=== PATIENT | male | born 1960 | race Caucasian/White ===

== ENCOUNTER 2016-12-19 07:28 | Outpatient (CLI) | payer MEDICAID ==
--- NOTE | 2016-12-19 08:57 | Ultrasound Report ---
SCROTAL DUPLEX: 12/19/2016 CLINICAL INDICATION: Pain. TECHNIQUE: Real-time sonographic vascular imaging was performed by the jumpbasting armhole baster through the scrotum utilizing both color-flow and Doppler spectral analysis. Multiple hotel services sales representative static images were saved for review. FINDINGS: The right testicle measures 5.1 x 3.5 x 2.7 cm, and the left testicle measures 5.2 x 3.1 x 3.0 cm. Both testicles demonstrate normal blood flow. No mass is identified. The right testicle does demonstrate microlithiasis. The right epididymis demonstrates a small cyst. The left epididymis is unremarkable. Trace hydrocele is present on the right. No hernia is identified. IMPRESSION: RIGHT TESTICULAR MICROLITHIASIS, WITHOUT EVIDENCE OF MASS LESION. FOLLOWUP SCROTAL DUPLEX IN ONE YEAR IS RECOMMENDED. JOB #: [id number] EXT JOB #: [id number] MTDD
--- NOTE | 2016-12-19 08:59 | Ultrasound Report ---
LIMITED ABDOMINAL ULTRASOUND: 12/19/2016 CLINICAL INDICATION: Left lower quadrant abdominal pain. TECHNIQUE: Real-time scanning was performed with patient financial representative static images obtained. FINDINGS: As requested, ultrasound of the left lower quadrant was performed. No ascites is seen. No abnormal mass is identified. IMPRESSION: NORMAL ULTRASOUND OF THE LEFT LOWER QUADRANT. JOB #: [id number] EXT JOB #:[id number]
== END 2016-12-19 07:29 | disposition home or self-care (01) ==
LOC: DI 07:28
PROVIDERS: ATTEND Nurse Practitioner Gerontology
DX: N50.89 Other specified disorders of the male genital organs (principal); R10.30 Lower abdominal pain, unspecified
CPT/HCPCS: 76705; 76870

== ENCOUNTER 2017-11-22 10:11 | Emergency (ER) | payer MEDICAID ==
[2017-11-22 12:09] VITALS: BP 122/81
--- NOTE | 2017-11-22 12:19 | ED Physician Documentation ---
History of Present Illness - Stated complaint Stated Complaint: EAR PX - Chief complaint Chief Complaint: Heent - Additonal information Additional information: hx from pt recent cough and cold now ears are still congested smoker but is cutting down pain is mild Review of Systems Constitutional: denies: Fever Ears: reports: Ear pain Nose: reports: Congestion Respiratory: reports: Cough (improving) Immunocompromised: denies: Immunocompromised PD PAST MEDICAL HISTORY - Past Medical History Past Medical History: Yes Respiratory: Asthma - Past Surgical History Past Surgical History: No - Present Medications Home Medications: Ambulatory Orders Medication Instructions Recorded Confirmed Oxymetazoline HCl [Afrin] 2 spray NS BID PRN #1 bottle 11/22/17 - Allergies Allergies/Adverse Reactions: Allergies Allergy/AdvReac Type Severity Reaction Status Date / Time Penicillins Allergy Anaphylaxis Verified 11/22/17 10:25 - Social History Does the pt smoke?: Yes Smoking Status: Current every day smoker Does the pt drink ETOH?: No Does the pt have substance abuse?: Yes Substance Use and Type: Marijuana - Immunizations Immunizations are current?: Yes PD ED PE NORMAL - Vitals Vital signs reviewed: Yes - General General: Alert and oriented X 3 - HEENT HEENT: PERRL. No: Ears normal (dull and retracted yasir no erythema) - Cardiac Cardiac: RRR - Respiratory Respiratory: Other (occ scattered wheeze c/w smoker but good air movement and no ronchi) Results - Vitals Vitals: Vital Signs - 24 hr 11/22/17 11/22/17 10:22 12:08 Temperature 37 C 36.7 C Heart Rate 64 56 L Respiratory 16 18 Rate Blood Pressure 121/76 122/81 H O2 Saturation 96 96 Oxygen O2 Source Room air Departure - Departure Disposition: 01 Home, Self Care Clinical Impression: Serous otitis media Qualifiers: Chronicity: acute Laterality: bilateral Recurrence: not specified as recurrent Qualified Code(s): H65.03 - Acute serous otitis media, bilateral Condition: Good Instructions: ED Otitis Media Serous Adult Prescriptions: Oxymetazoline HCl [Afrin] 2 spray NS BID PRN #1 bottle PRN Reason: nasal sinus ear congestion Comments: Please stop smoking
== END 2017-11-22 12:35 | disposition home or self-care (01) ==
LOC: ED 10:11
DX: H65.03 Acute serous otitis media, bilateral (principal); J45.909 Unspecified asthma, uncomplicated; F17.200 Nicotine dependence, unspecified, uncomplicated
CPT/HCPCS: 99283

== ENCOUNTER 2018-06-09 12:44 | Outpatient (CLI) | payer MEDICAID ==
--- NOTE | 2018-06-10 10:07 | Ultrasound Report ---
Reason: TESTICULAR DYSFUNCTION, FOLLOW-UP SCROTUM FOR MICROLITHIASIS Procedure Date: 06/09/2018 Accession Number: [id number] / [id number] Procedure: US - Testicle CPT Code: FULL RESULT: EXAM: SCROTAL ULTRASOUND EXAM DATE: 06/09/2018 01:36 PM. CLINICAL HISTORY: Testicular dysfunction, follow-up scrotum for microlithiasis. COMPARISON: Testicle with Doppler 12/19/2016 7:37 AM. TECHNIQUE: Real-time scanning was performed with static images obtained. Color-flow images were utilized. FINDINGS: Right: Testis: 4.9 x 3.6 x 2.5 cm. Normal size and echotexture. No mass or abnormal blood flow. Previously described microlithiasis is less well-demonstrated today. Epididymis: 3.3 x 1.1 x 0.6 cm. Normal size and echotexture. No mass or abnormal blood flow. Hydrocele: None. Varicocele: None. Left: Testis: 5.2 x 3.7 x 2.7 cm. Normal size and echotexture. No mass, calcification, or abnormal blood flow. Epididymis: 2.4 x 0.9 x 0.6 cm. Normal size and echotexture. No mass or abnormal blood flow. Hydrocele: None. Varicocele: Small. IMPRESSION: 1. Previously described right microlithiasis is less evident. Recommend one additional follow-up in a year to assess stability. 2. Small left-sided varicocele. RADIA
== END 2018-06-09 12:45 | disposition home or self-care (01) ==
LOC: DI 12:44
PROVIDERS: ATTEND Nurse Practitioner Gerontology
DX: E29.9 Testicular dysfunction, unspecified (principal); N50.89 Other specified disorders of the male genital organs; I86.1 Scrotal varices
CPT/HCPCS: 76870

== ENCOUNTER 2018-09-16 11:32 | Emergency (ER) | payer MEDICAID ==
--- NOTE | 2018-09-16 12:51 | ED Physician Documentation ---
PD HPI URI - Stated complaint Stated Complaint: FLU LIKE SX - Chief complaint Chief Complaint: Fever - History obtained from History obtained from: Patient - History of Present Illness Timing - onset: How many days ago (6) Timing duration: Days (6) Timing details: Abrupt onset, Still present Associated symptoms: Fever, Chills, Nasal congestion, Dry cough, NVD (some diarrhea) Contributing factors: No: Sick contact Similar symptoms before: Has not had sx before Recently seen: Not recently seen Review of Systems Constitutional: reports: Fever, Chills, Myalgias Nose: reports: Congestion Throat: denies: Sore throat Respiratory: reports: Cough (mild). denies: Hemoptysis, Wheezing GI: reports: Nausea, Diarrhea. denies: Vomiting Neurologic: reports: Generalized weakness. denies: Focal weakness, Numbness, Near syncope PD PAST MEDICAL HISTORY - Past Medical History Respiratory: Asthma - Past Surgical History Past Surgical History: No - Present Medications Home Medications: Ambulatory Orders Medication Instructions Recorded Confirmed Oxymetazoline HCl [Afrin] 2 spray NS BID PRN #1 bottle 11/22/17 - Allergies Allergies/Adverse Reactions: Allergies Allergy/AdvReac Type Severity Reaction Status Date / Time Penicillins Allergy Anaphylaxis Verified 09/16/18 11:44 - Social History Does the pt smoke?: Yes Smoking Status: Current every day smoker Does the pt drink ETOH?: No Does the pt have substance abuse?: Yes - Immunizations Immunizations are current?: Yes PD ED PE NORMAL - Vitals Vital signs reviewed: Yes - General General: Alert and oriented X 3, No acute distress, Well developed/nourished - HEENT HEENT: Moist mucous membranes, Pharynx benign - Neck Neck: Supple, no meningeal sign, No adenopathy - Cardiac Cardiac: RRR, No murmur - Respiratory Respiratory: Clear bilaterally - Abdomen Abdomen: Soft, Non tender - Derm Derm: Normal color, Warm and dry, No rash - Neuro Neuro: Alert and oriented X 3, No motor deficit, Normal speech Results - Vitals Vitals: Vital Signs - 24 hr 09/16/18 09/16/18 11:42 13:14 Temperature 36.9 C 36.6 C Heart Rate 60 60 Respiratory 18 16 Rate Blood Pressure 128/80 126/80 O2 Saturation 100 100 Oxygen O2 Source Room air PD MEDICAL DECISION MAKING - ED course Complexity details: considered differential (Seems flulike without any other obvious localized infection. At this point I think he needs more time and no particular medications or treatments.), d/w patient Departure - Departure Disposition: 01 Home, Self Care Clinical Impression: Influenza Condition: Stable Record reviewed to determine appropriate education?: Yes Instructions: ED Flu Follow-Up: Ivon Lobo ARNP [Primary Care Provider] - Comments: This sounds like a flu illness. Commonly the symptoms are 7-10 days. Continue ibuprofen and add Tylenol as needed for fevers and aches. At this point there is no particular symptoms or finding to suggest other infection. Return if other symptoms develop. Otherwise it expect a few more days of illness and then improving. You may still feel fatigued for another week or so. Discharge Date/Time: 09/16/18 13:14
[2018-09-16 13:15] VITALS: BP 126/80
== END 2018-09-16 13:14 | disposition home or self-care (01) ==
LOC: ED 11:32
DX: J11.1 Influenza due to unidentified influenza virus with other respiratory manifestations (principal); F17.200 Nicotine dependence, unspecified, uncomplicated
CPT/HCPCS: 99282; 99283

== ENCOUNTER 2018-10-11 10:25 | Day surgery (SDC) | payer MEDICAID ==
[2018-10-11] MEDS ORDERED: LACTATED RINGERS 1,000 ML IV ONE (10:55)
[2018-10-11] MEDS ORDERED: fentaNYL 250 MCG/5 ML VIAL IVP ONE (11:14)
[2018-10-11] MEDS ORDERED: MIDAZOLAM 2 MG/2 ML VIAL IVP ONE (11:14)
[2018-10-11 12:02] VITALS: BP 112/70
== END 2018-10-11 10:26 | disposition home or self-care (01) ==
LOC: SDS 10:25
PROVIDERS: ATTEND Surgery
PROC: 0DJD8ZZ Inspection of Lower Intestinal Tract, Via Natural or Artificial Opening Endoscopic (ICD-10-PCS; principal; 2018-10-11 12:15)
DX: Z12.11 Encounter for screening for malignant neoplasm of colon (principal); K64.8 Other hemorrhoids; Z87.891 Personal history of nicotine dependence
CPT/HCPCS: 45378; J3010; J7120

== ENCOUNTER 2019-03-01 10:05 | Outpatient (CLI) | payer MEDICAID ==
--- NOTE | 2019-03-01 16:25 | XRAY Report ---
Reason: FOOT JOINT PAIN Procedure Date: 03/01/2019 Accession Number: [id number] / [id number] Procedure: XRN - Calcaneus LT CPT Code: FULL RESULT: EXAM: LEFT CALCANEUS RADIOGRAPHY EXAM DATE: 03/01/2019 10:27 AM. CLINICAL HISTORY: FOOT JOINT PAIN. COMPARISON: None. TECHNIQUE: 2 views. FINDINGS: Bones: Normal. No fractures or bone lesions. Joints: Normal. No subluxations. Soft Tissues: Posterior calcaneal enthesophyte at the Achilles insertion. No soft tissue swelling. IMPRESSION: 1. Posterior calcaneal enthesophyte at the Achilles insertion. RADIA
== END 2019-03-01 10:06 | disposition home or self-care (01) ==
LOC: DI.N 10:05
PROVIDERS: ATTEND Nurse Practitioner Gerontology
DX: M77.32 Calcaneal spur, left foot (principal)